=== PATIENT | male | born 1960 | race Caucasian/White ===

== ENCOUNTER 2019-07-04 17:12 | Emergency (ER) | payer MEDICARE ==
[2019-07-04] MEDS ORDERED: traMADol 50 MG Tab PO ONE (17:13)
[2019-07-04] MEDS ORDERED: Ketorolac 10 MG Tab PO ONE (17:13)
[2019-07-04] MEDS ORDERED: fentaNYL 100 MCG/2 ML SDV IVPUSH ONE (17:34)
[2019-07-04 17:50] LABS: CHLORIDE,CL 100 mEq/L (98-106); SODIUM,NA 139 mEq/L (136-145)
[2019-07-04 18:26] VITALS: BP 117/54; PULSE 71
[2019-07-04] MEDS ORDERED: Ketorolac 30 MG/ML SDV IVPUSH ONE (19:01)
--- NOTE | 2019-07-04 19:07 | EDM.PDOC ---
ED HPI GENERAL MEDICAL PROBLEM - General Chief Complaint: Lower Extremity Injury/Pain Stated Complaint: right leg pain Time Seen by Provider: 07/04/19 17:50 Source of Information: Reports: Patient History Limitations: Reports: No Limitations - History of Present Illness INITIAL COMMENTS - FREE TEXT/NARRATIVE: Alvin is a 58yo male who presents to the ED via [facility] with complaints of right leg pain. He states symptoms started yesterday evening around 8:30. He was sitting and watching TV at onset. Admits to being a shallow irritation initially and gradually got worse. States by midnight he was in full sweats from the pain. States he doesn't recall any injury and denies any past trauma. States he was told he had sciatica 20 yrs ago and it just went away on its own. Admits if he is laying down it does seem to improve some. Admits when he tries to move and starts ambulating the pain seems to get worse. He states it feels like it is in the bone of the femur. Denies any other symptoms. No history of chronic low back pain. Admits he tried taking Aleve right away at symptom onset but really didn't help. Treatments TRANSMISSION SPECIALIST: Reports: Acetaminophen, Aspirin Right Leg Pain Score (Numeric/FACES): 8 - Related Data Allergies Allergy/AdvReac Type Severity Reaction Status Date / Time No Known Allergies Allergy Verified 07/04/19 17:14 Home Meds: Home Meds Aspirin 325 mg PO DAILY 07/04/19 [History] Carvedilol [Coreg] 25 mg PO BID 07/04/19 [History] Furosemide 40 mg PO DAILY 07/04/19 [History] Lisinopril [Zestril] 5 mg PO DAILY 07/04/19 [History] Spironolactone [Aldactone] 12.5 mg PO DAILY 07/04/19 [History] atorvaSTATin Calcium [Atorvastatin Calcium] 80 mg PO DAILY 07/04/19 [History] Past Medical History Cardiovascular History: Reports: High Cholesterol, Hypertension, Other (See Below) Other Cardiovascular History: dilated cardiomyopathy Musculoskeletal History: Reports: Other (See Below) Other Musculoskeletal History: back pain in his 30s - Past Surgical History HEENT Surgical History: Reports: Eye Surgery GI Surgical History: Reports: Appendectomy Musculoskeletal Surgical History: Reports: Other (See Below) Other Musculoskeletal Surgeries/Procedures:: foot surgery Social & Family History - Tobacco Use Smoking Status *Q: Current Every Day Smoker Years of Tobacco use: 31 Packs/Tins Daily: 0.5 Review of Systems - Review of Systems Review Of Systems: See Below Constitutional: Reports: Weakness (right lower extremity). Denies: Chills, Fever Eyes: Reports: No Symptoms Ears: Reports: No Symptoms Nose: Reports: No Symptoms Mouth/Throat: Reports: No Symptoms Respiratory: Denies: Shortness of Breath, Pleuritic Chest Pain, Cough Cardiovascular: Denies: Chest Pain, Edema, Irregular Heart Rate, Palpitations GI/Abdominal: Reports: Nausea, Vomiting (states last night around 1:30). Denies : Abdominal Pain Genitourinary: Reports: No Symptoms Musculoskeletal: Reports: Leg Pain. Denies: Shoulder Pain, Back Pain, Joint Pain, Muscle Pain, Muscle Stiffness Skin: Reports: No Symptoms Neurological: Denies: Confusion, Dizziness, Headache, Numbness, Paresthesia, Tingling, Trouble Speaking Psychiatric: Reports: No Symptoms ED EXAM, GENERAL - Physical Exam Exam: See Below Exam Limited By: No Limitations General Appearance: Alert, WD/WN, No Apparent Distress Nose: Normal Inspection, No Blood Throat/Mouth: Normal Inspection, Normal Voice, No Airway Compromise Head: Atraumatic, Normocephalic Neck: Normal Inspection, Supple Respiratory/Chest: No Respiratory Distress, Lungs Clear, No Accessory Muscle Use Cardiovascular: Regular Rate, Rhythm, No Murmur Peripheral Pulses: 1+: Dorsalis Pedis (L), Dorsalis Pedis (R), 2+: Posterior Tibial (L), Posterior Tibial (R) GI/Abdominal: Normal Bowel Sounds, Soft, Non-Tender Back Exam: Normal Inspection, Full Range of Motion. No: Vertebral Tenderness Extremities: Normal Inspection, Normal Range of Motion (Full ROM, no discomfort noted at rest. Upon ambulation, which is normal, it appears discomfort sets in. No bruising noted to thigh. No swelling to thigh. ), No Pedal Edema, Leg Pain ( midfemur) Neurological: Alert, Oriented, No Motor/Sensory Deficits Psychiatric: Normal Affect, Normal Mood Skin Exam: Warm, Dry, Intact, Normal Color, No Rash Course - Vital Signs Last Recorded V/S: Last Vital Signs Temp 98.8 F 07/04/19 18:24 Pulse 71 07/04/19 18:24 Resp 16 07/04/19 18:24 BP 117/54 L 07/04/19 18:24 Pulse Ox 95 07/04/19 18:24 - Orders/Labs/Meds Orders: Active Orders 24 hr Category Date Time Status Femur Min 2V Rt [CR] Routine Exams 07/04/19 Taken Lumbar Spine 2 or 3V [CR] Routine Exams 07/04/19 Taken Labs: Laboratory Tests 07/04/19 07/04/19 07/04/19 Range/Units 17:34 17:34 17:34 WBC 12.1 H (5.0-10.0) 10^3/uL RBC 4.92 (4.50-6.00) 10^6/uL Hgb 15.3 (14.0-18.0) g/dL Hct 42.3 (40.0-54.0) % MCV 86.0 (82.0-94.0) fL MCH 31.1 (27.0-32.0) pg MCHC 36.2 (33.0-38.0) g/dL RDW Coeff of Nancy 12.0 (11.0-15.0) % Plt Count 252 (150-400) 10^3/uL Neut % (Auto) 78.7 (35-85) % Lymph % (Auto) 14.0 (10-55) % Tyrrell % (Auto) 6.0 (0-16) % Eos % (Auto) 1.1 (0-5) % Baso % (Auto) 0.2 (0-3) % Neut # (Auto) 9.51 H (1.80-7.00) 10^3/uL Lymph # (Auto) 1.70 (1.00-4.80) 10^3/uL Tyrrell # (Auto) 0.73 (0.00-0.80) 10^3/uL Eos # (Auto) 0.13 (0.00-0.45) 10^3/uL Baso # (Auto) 0.03 10^3/uL ESR 8 (0-15) mm/hr D-Dimer, Quantitative 0.26 (0.00-0.50) Sodium 139 (136-145) mEq/L Potassium 4.0 (3.5-5.0) mEq/L Chloride 100 (98-106) mEq/L Carbon Dioxide 29 (21-32) mmol/L BUN 11 (7-18) mg/dL Creatinine 0.8 (0.7-1.3) mg/dL Est Cr Clr Drug Dosing 113.75 mL/min Estimated GFR (MDRD) > 60 (>=60) mL/min Glucose 116 H (75-99) mg/dL Calcium 9.0 (8.4-10.1) mg/dL Creatine Kinase 101 (35-232) U/L Meds: Medications Discontinued Medications Generic Name Dose Route Start Last Admin Trade Name Serina PRN Reason Stop Dose Admin Fentanyl 50 mcg 07/04/19 17:34 07/04/19 17:42 Sublimaze IVPUSH 07/04/19 17:35 50 mcg ONETIME ONE Administration Ketorolac Tromethamine 30 mg 07/04/19 19:01 07/04/19 19:12 Toradol IVPUSH 07/04/19 19:02 30 mg ONETIME ONE Administration Ketorolac Tromethamine 1 packet 07/04/19 20:08 Take Home: Ketorolac 10 Mg, 4 Tab Pack PO 07/04/19 20:09 ONETIME ONE Orphenadrine Citrate 60 mg 07/04/19 19:01 07/04/19 19:08 Norflex IV 07/04/19 19:02 60 mg ONETIME ONE Administration Tramadol HCl 1 packet 07/04/19 20:08 Take Home: Tramadol 50 Mg, 4 Tab Pack PO 07/04/19 20:09 ONETIME ONE - Radiology Interpretation Free Text/Narrative:: X-rays of the lumbar spine and right femur show no obvious fractures or acute abnormalities. Departure - Departure Time of Disposition: 20:06 Disposition: Home, Self-Care 01 Clinical Impression: Pain in right femur - Discharge Information Instructions: Pain Medicine Instructions, [id number] Forms: ED Department Discharge Additional Instructions: 1) Ketorolac 10mg - 1 tablet every 8 hours as needed for pain 2) Tramadol 50mg - 1 tablet every 6 hours as needed for pain 3) Recommend resting tonight 4) May use assistive devices, crutches if needed if unable to bear weight 5) Recommend following up in clinic if symptoms persist for further work up, MRI , etc... as discussed 6) If pain worsens, any new onset of symptoms, recommend returning to the ED. Sepsis Event Note - Evaluation Sepsis Screening Result: No Definite Risk - Focused Exam Vital Signs: Vital Signs Temp Pulse Resp BP Pulse Ox 07/04/19 18:24 98.8 F 71 16 117/54 L 95 07/04/19 17:15 99.0 F 72 16 142/83 H 100 Date Exam was Performed: 07/04/19 Time Exam was Performed: 20:18 - Problem List & Annotations (1) Pain in right femur SNOMED Code(s): 667323147 Code(s): M89.8X5 - OTHER SPECIFIED DISORDERS OF BONE, THIGH Status: Acute Current Visit: Yes - My Orders Last 24 Hours: My Active Orders 07/04/19 Femur Min 2V Rt [CR] Routine Lumbar Spine 2 or 3V [CR] Routine - Assessment/Plan Last 24 Hours: My Active Orders 07/04/19 Femur Min 2V Rt [CR] Routine Lumbar Spine 2 or 3V [CR] Routine Plan: X-rays didn't show any acute findings. Final radiology report of femur was negative. I did discuss unknown etiology with Alvin. Advise resting tonight. Will send home with pain medicine for relief. Alvin hasn't appeared to be in any distress in the ED at rest. He has been resting comfortably. Patient has been ambulating in no distress to the restroom. I feel patient may be discharged at this time.
[2019-07-04] MEDS ORDERED: Take Home: Ketorolac 10 MG Tab, 4 Tab Pack PO ONE (20:08)
[2019-07-04] MEDS ORDERED: Take Home: traMADol 50 MG, 4 Tab Pack PO ONE (20:08)
== END 2019-07-04 21:30 | disposition home or self-care (01) ==
LOC: CC.ED 17:12
DX: M79.651 Pain in right thigh (principal); F17.210 Nicotine dependence, cigarettes, uncomplicated; I10 Essential (primary) hypertension; E78.00 Pure hypercholesterolemia, unspecified; Z79.82 Long term (current) use of aspirin; Z79.899 Other long term (current) drug therapy
CPT/HCPCS: 36415; 72100; 80048; 82550; 85025; 85379; 85651; 96374; 96375; 99283; 99284-25; A9270-GY; J1885; J2360; J3010

== ENCOUNTER 2019-07-06 10:42 | Emergency (ER) | payer MEDICARE ==
[2019-07-06 11:02] VITALS: BP 116/78; PULSE 73
[2019-07-06] MEDS ORDERED: Ketorolac 60 MG/2 ML SDV IM ONE (11:26)
--- NOTE | 2019-07-06 11:27 | EDM.PDOC ---
ED HPI GENERAL MEDICAL PROBLEM - General Chief Complaint: General Stated Complaint: LEG PAIN Time Seen by Provider: 07/06/19 11:15 Source of Information: Reports: Patient History Limitations: Reports: No Limitations - History of Present Illness INITIAL COMMENTS - FREE TEXT/NARRATIVE: Was in to see Fred Wilkes in ER on Wednesday night for the same pain. He thought it was getting better and today pain became very intense again. He states that the pain is in his right thigh and is sharp stabbing and very intense. He has iced it, used topical cream, and used the pain meds that were given in the ER. He states that depending on how he moves the pain is worse. He denies any injury or any back pain. Has not had any swelling or redness to the area. Leg feels weaker but only when the pain is intense. Has not given out . Onset: Gradual Duration: Intermittent, Recurring Location: Reports: Lower Extremity, Right Quality: Reports: Same as Previous Episode, Sharp, Stabbing, Throbbing Worsens with: Reports: Movement Associated Symptoms: Reports: No Other Symptoms Right Thigh Pain Score (Numeric/FACES): 8 - Related Data Allergies Allergy/AdvReac Type Severity Reaction Status Date / Time No Known Allergies Allergy Verified 07/06/19 10:59 Home Meds: Home Meds Aspirin 325 mg PO DAILY 07/04/19 [History] Carvedilol [Coreg] 25 mg PO BID 07/04/19 [History] Furosemide 40 mg PO DAILY 07/04/19 [History] Lisinopril [Zestril] 5 mg PO DAILY 07/04/19 [History] Spironolactone [Aldactone] 12.5 mg PO DAILY 07/04/19 [History] atorvaSTATin Calcium [Atorvastatin Calcium] 80 mg PO DAILY 07/04/19 [History] Past Medical History Cardiovascular History: Reports: High Cholesterol, Hypertension, Other (See Below) Other Cardiovascular History: dilated cardiomyopathy Musculoskeletal History: Reports: Other (See Below) Other Musculoskeletal History: back pain in his 30s - Past Surgical History HEENT Surgical History: Reports: Eye Surgery Cardiovascular Surgical History: Reports: None GI Surgical History: Reports: Appendectomy Musculoskeletal Surgical History: Reports: Other (See Below) Other Musculoskeletal Surgeries/Procedures:: foot surgery Social & Family History - Family History Family Medical History: Noncontributory - Tobacco Use Smoking Status *Q: Current Every Day Smoker Years of Tobacco use: 25 Packs/Tins Daily: 0.5 - Caffeine Use Caffeine Use: Reports: None, Coffee, Energy Drinks - Recreational Drug Use Recreational Drug Use: No ED ROS GENERAL - Review of Systems Review Of Systems: See Below Constitutional: Reports: No Symptoms Musculoskeletal: Reports: Muscle Pain. Denies: Back Pain ED EXAM, GENERAL - Physical Exam Exam: See Below Exam Limited By: No Limitations General Appearance: Alert, Moderate Distress Respiratory/Chest: No Respiratory Distress, Lungs Clear, Normal Breath Sounds Cardiovascular: Regular Rate, Rhythm, No Edema Back Exam: Normal Inspection. No: Muscle Spasm, Paraspinal Tenderness, Vertebral Tenderness Extremities: Normal Inspection, Normal Range of Motion, No Pedal Edema, Normal Capillary Refill, Leg Pain, Other (right thigh is tender with movment and he will have sharp stabbing pains when he tries to move it or stretches out. It is not tender with palpation of the muscle. No swelling or redness noted. ) Course - Vital Signs Last Recorded V/S: Last Vital Signs Temp 97.4 F 07/06/19 11:00 Pulse 73 07/06/19 11:00 Resp 20 07/06/19 11:00 BP 116/78 07/06/19 11:00 Pulse Ox 100 07/06/19 11:00 - Orders/Labs/Meds Meds: Medications Discontinued Medications Generic Name Dose Route Start Last Admin Trade Name Serina PRN Reason Stop Dose Admin Hydrocodone Bitart/Acetaminophen 1 tab 07/06/19 13:13 07/06/19 13:18 [place] 325-5 Mg PO 07/06/19 13:14 1 tab ONETIME ONE Administration Ketorolac Tromethamine 60 mg 07/06/19 11:26 07/06/19 11:35 Toradol IM 07/06/19 11:27 60 mg ONETIME ONE Administration Orphenadrine Citrate 60 mg 07/06/19 11:30 07/06/19 11:41 Norflex IM 60 mg Q12H UNIQUE Administration - Re-Assessments/Exams Free Text/Narrative Re-Assessment/Exam: 07/06/19 1130 Will give NOrflex and Tordal IM now and have observe him for relief and then PT will see him at 1400 and eval and treat. I will them reassess him after they eval. 07/06/19 1430 Discussed PT eval and they feel that this is coming form his back rather than from the thigh itself. will start on muscle relaxants and then will schedule follow up appt with PT on Wednesday and follow up with Fred wilkes as already scheduled. Recheck sooner if pain changes or does not improve. Departure - Departure Time of Disposition: 14:49 Disposition: Home, Self-Care 01 Condition: Fair Clinical Impression: Radicular leg pain, Radicular low back pain - Discharge Information *PRESCRIPTION DRUG MONITORING PROGRAM REVIEWED*: Yes *COPY OF PRESCRIPTION DRUG MONITORING REPORT IN PATIENT ARNOLDO: Yes Instructions: Radicular Pain Referrals: PCP,Amadeoobtain [Primary Care Provider] - Forms: ED Department Discharge Additional Instructions: flexeril 10 mg twice a day for spasms tramadol 50 mg ever 8 hours as needed. Keep appt with PT on Wednesday follow up with Fred as scheduled on Wednesday Sepsis Event Note - Evaluation Sepsis Screening Result: No Definite Risk - Focused Exam Vital Signs: Vital Signs Temp Pulse Resp BP Pulse Ox 07/06/19 11:00 97.4 F 73 20 116/78 100 Date Exam was Performed: 07/06/19 Time Exam was Performed: 18:25 - Problem List & Annotations (1) Pain in right femur SNOMED Code(s): 522460838 Code(s): M89.8X5 - OTHER SPECIFIED DISORDERS OF BONE, THIGH Status: Acute Priority: High (2) Radicular leg pain SNOMED Code(s): 07804260 Code(s): M54.10 - RADICULOPATHY, SITE UNSPECIFIED Status: Acute Priority : High (3) Radicular low back pain SNOMED Code(s): 68782682 Code(s): M54.10 - RADICULOPATHY, SITE UNSPECIFIED Status: Acute Priority : High - Problem List Review Problem List Initiated/Reviewed/Updated: Yes
[2019-07-06] MEDS ORDERED: Acetaminophen/HYDROcodone 325-5 MG Tab PO ONE (13:13)
== END 2019-07-06 15:10 | disposition home or self-care (01) ==
LOC: CC.ED 10:42
DX: M54.16 Radiculopathy, lumbar region (principal); I10 Essential (primary) hypertension; E78.00 Pure hypercholesterolemia, unspecified; F17.210 Nicotine dependence, cigarettes, uncomplicated; Z79.82 Long term (current) use of aspirin; Z79.899 Other long term (current) drug therapy
CPT/HCPCS: 96372; 99283; 99284; A9270-GY; J1885; J2360